=== PATIENT | male | born 1935 | race Caucasian/White ===

== ENCOUNTER 2022-03-07 15:18 | Emergency (ER) | payer MEDICARE, OTHER ==
[~2022-03-07] VITALS: Ht 172.7 cm; Wt 77.1 kg
--- NOTE | 2022-03-07 16:16 | NUR ---
DR SANDRINE CAMARILLO [phone]
--- NOTE | 2022-03-07 16:16 | NUR ---
DR BAHENA ON THE PHONE WITH DR CAMARILLO
--- NOTE | 2022-03-07 16:17 | NUR ---
X-RAY TECH AT THE BEDSIDE
[2022-03-07] MEDS ORDERED: VANCOMYCIN 1 GM in IV D5W 250 ML IV ONE (16:30)
--- NOTE | 2022-03-07 16:30 | NUR ---
IV LINE IS ESTABLISHED, BLOOD SPECIMEN COLLECTED AND SENT TO THE LAB.
--- NOTE | 2022-03-07 16:49 | NUR ---
COVID ANTIGEN SWAB IS DONE AND SENT TO THE LAB
[2022-03-07] MEDS ORDERED: GLIM4TAB37 PO (16:54)
[2022-03-07] MEDS ORDERED: PRAV40TA3 PO (16:54)
[2022-03-07] MEDS ORDERED: DOXA2TAB2 PO (16:54)
[2022-03-07] MEDS ORDERED: DULA1.5P SQ (16:54)
[2022-03-07] MEDS ORDERED: TAMS-12 PO (16:54)
[2022-03-07] MEDS ORDERED: APIX2.5T PO (16:54)
[2022-03-07 17:32] LABS: BASOPHILS % (AUTO) 0.3 % (0.0-2.0); HEMATOCRIT 37 % (39-51); HEMOGLOBIN 12.3 g/dL (13.5-17.5); LYMPHOCYTES # (AUTO) 1.5 K/uL (0.8-4.8); MEAN CORPUSCULAR HGB CONC 33 g/dl (31.0-36.0); MEAN CORPUSCULAR VOLUME 85 fL (80-96); MONOCYTES # (AUTO) 0.6 K/uL (0.1-1.30); MONOCYTES % (AUTO) 8.9 % (2.0-12.0); NEUTROPHILS # (AUTO) 4.6 K/uL (1.8-8.9); NEUTROPHILS % (AUTO) 67.8 % (43.0-81.0); PLATELET COUNT (AUTO) 147 K/uL (150-450); RED BLOOD CELL COUNT(AUTO) 4.42 MIL/uL (4.5-6.0); WHITE BLOOD COUNT (AUTO) 6.8 K/uL (4.3-11.0)
[2022-03-07 17:33] LABS: CALCIUM, SERUM 9.1 mg/dL (8.5-10.1); CREATININE 1.3 mg/dL (0.6-1.3); POTASSIUM 4.2 mmol/L (3.5-5.1)
[2022-03-07 17:34] LABS: C-REACTIVE PROTEIN 0.9 mg/dL (0.0-0.9)
--- NOTE | 2022-03-07 17:52 | NUR ---
ACCEPTED TO [facility], UNDER THE CARE OF DR. HANSEN. GOING TO ROOM 309, NUMBER TO GIVE REPORT. TRANSPORTATION [facility] TIER TIME AT 1930. PRIMARY RN AWARE.
--- NOTE | 2022-03-07 18:55 | NUR ---
REPORT GIVEN TO NURSE ESPINOSA FROM [facility]
--- NOTE | 2022-03-07 18:56 | NUR ---
REPORT GIVEN TO AMBULANCE STAFF
[2022-03-07 19:06] VITALS: BP 162/82
--- NOTE | 2022-03-07 19:08 | NUR ---
DR BAHENA MADE AWARE OF BP 162/82 AND HR 76 AND THE PATIENT IS GETTING TRANSFERED TO [facility]. NO NEW ORDERS PER ORDER.
== END 2022-03-07 19:15 | disposition short-term general hospital (02) ==
LOC: ER 15:18
DX: E11.621 Type 2 diabetes mellitus with foot ulcer (principal); L97.519 Non-pressure chronic ulcer of other part of right foot with unspecified severity; Z79.899 Other long term (current) drug therapy; Z79.84 Long term (current) use of oral hypoglycemic drugs; Z79.01 Long term (current) use of anticoagulants; I10 Essential (primary) hypertension; Z20.822 Contact with and (suspected) exposure to COVID-19
CPT/HCPCS: 36415; 73630; 80048; 85025; 85652; 86140; 87040 ×2; 87426; 96365; 99291; J3370; C9803; J7060

== ENCOUNTER 2022-05-25 14:02 | Outpatient (CLI) | payer MEDICARE, OTHER ==
[~2022-05-25 14:02] MED LIST: APIX2.5T PO; DOXA2TAB2 PO; DULA1.5P SQ; GLIM4TAB37 PO; PRAV40TA3 PO; TAMS-12 PO
== END 2022-05-25 23:59 | disposition home or self-care (01) ==
LOC: MRI 14:02
DX: S46.811A Strain of other muscles, fascia and tendons at shoulder and upper arm level, right arm, initial encounter (principal); M19.011 Primary osteoarthritis, right shoulder; M62.511 Muscle wasting and atrophy, not elsewhere classified, right shoulder; M75.81 Other shoulder lesions, right shoulder; M75.101 Unspecified rotator cuff tear or rupture of right shoulder, not specified as traumatic; M25.511 Pain in right shoulder; X58.XXXA Exposure to other specified factors, initial encounter; Y93.89 Activity, other specified; Y92.89 Other specified places as the place of occurrence of the external cause; Y99.8 Other external cause status
CPT/HCPCS: 73221-TC

== ENCOUNTER 2023-07-24 09:16 | Outpatient (CLI) | payer MEDICARE, OTHER ==
[2023-07-24] MEDS ORDERED: LIDOCAINE 2% JEL 5 ML TUBE ONE (09:27)
[2023-07-24] MEDS ORDERED: MUPIROCIN 2% CREAM 15 GM TUBE TP ONE (10:19)
[2023-07-24 11:20] LABS: ERYTHROCYTE SEDIMENTATION RATE 15 MM/HR (0-20)
[2023-07-24 11:28] LABS: BASOPHILS % (AUTO) 0.4 % (0.0-2.0); EOSINOPHILS # (AUTO) 0.1 K/uL (0.0-0.7); HEMATOCRIT 37 % (39-51); LYMPHOCYTES # (AUTO) 1.5 K/uL (0.8-4.8); LYMPHOCYTES % (AUTO) 23.2 % (20.0-44.0); MEAN CORPUSCULAR HEMOGLOBIN 28 PG (26.0-33.0); MEAN CORPUSCULAR HGB CONC 33 g/dl (31.0-36.0); MEAN CORPUSCULAR VOLUME 86 fL (80-96); MONOCYTES # (AUTO) 0.6 K/uL (0.1-1.30); MONOCYTES % (AUTO) 9.3 % (2.0-12.0); NEUTROPHILS # (AUTO) 4.2 K/uL (1.8-8.9); NEUTROPHILS % (AUTO) 66.1 % (43.0-81.0); PLATELET COUNT (AUTO) 199 K/uL (150-450); RED BLOOD CELL COUNT(AUTO) 4.24 MIL/uL (4.5-6.0); RED CELL DISTRIBUTION WIDTH 14.2 % (11.5-15.0); WHITE BLOOD COUNT (AUTO) 6.4 K/uL (4.3-11.0)
[2023-07-24 11:39] LABS: ALBUMIN 3.6 g/dL (3.4-5.0); CALCIUM, SERUM 9.3 mg/dL (8.5-10.1); CARBON DIOXIDE 23 mmol/L (21-32); CHLORIDE 103 mmol/L (98-107); CREATININE 1.4 mg/dL (0.6-1.3); GLUCOSE 194 mg/dL (74-106); POTASSIUM 4.5 mmol/L (3.5-5.1); SODIUM SERUM 136 mmol/L (136-145); UREA NITROGEN, BLOOD 34 mg/dL (7-18)
[2023-07-24 12:05] LABS: C-REACTIVE PROTEIN < 0.2 mg/dL (0.0-0.9); PREALBUMIN 21.4 MG/DL (18.0-35.7)
== END 2023-07-24 23:59 | disposition home or self-care (01) ==
LOC: WOU 09:16
PROVIDERS: ATTEND Podiatrist Foot & Ankle Surgery
DX: E11.621 Type 2 diabetes mellitus with foot ulcer (principal); L97.512 Non-pressure chronic ulcer of other part of right foot with fat layer exposed; M79.672 Pain in left foot; M79.671 Pain in right foot; L84 Corns and callosities; M20.42 Other hammer toe(s) (acquired), left foot; M20.41 Other hammer toe(s) (acquired), right foot; I10 Essential (primary) hypertension; Z79.84 Long term (current) use of oral hypoglycemic drugs; Z79.01 Long term (current) use of anticoagulants
CPT/HCPCS: 11042; 36415; 73630-TC; 80048-TC; 82040-TC; 84134-TC; 85025-TC; 85652-TC; 86140-TC

== ENCOUNTER 2023-07-31 09:56 | Inpatient (IN) | payer MEDICARE, OTHER ==
[~2023-07-31] VITALS: Ht 170.2 cm; Wt 70.3 kg
[2023-07-31] MEDS ORDERED: VANCOMYCIN HCL 1.25 GM in IV D5W 260 ML IV ONE (10:30)
[2023-07-31 10:45] LABS: BASOPHILS % (AUTO) 0.3 % (0.0-2.0); EOSINOPHILS # (AUTO) 0.1 K/uL (0.0-0.7); EOSINOPHILS % (AUTO) 1.4 % (0.0-6.0); HEMATOCRIT 36 % (39-51); HEMOGLOBIN 11.7 g/dL (13.5-17.5); LYMPHOCYTES # (AUTO) 1.3 K/uL (0.8-4.8); LYMPHOCYTES % (AUTO) 26.5 % (20.0-44.0); MEAN CORPUSCULAR HEMOGLOBIN 28 PG (26.0-33.0); MEAN CORPUSCULAR HGB CONC 33 g/dl (31.0-36.0); MEAN CORPUSCULAR VOLUME 85 fL (80-96); MONOCYTES # (AUTO) 0.5 K/uL (0.1-1.30); MONOCYTES % (AUTO) 10.1 % (2.0-12.0); NEUTROPHILS # (AUTO) 3.1 K/uL (1.8-8.9); NEUTROPHILS % (AUTO) 61.7 % (43.0-81.0); PLATELET COUNT (AUTO) 168 K/uL (150-450); RED BLOOD CELL COUNT(AUTO) 4.22 MIL/uL (4.5-6.0); RED CELL DISTRIBUTION WIDTH 14.2 % (11.5-15.0)
[2023-07-31] MEDS ORDERED: LINA145C PO (10:46)
[2023-07-31] MEDS ORDERED: OMEP40CA21 PO (10:46)
[2023-07-31] MEDS ORDERED: OLME20TA23 PO (10:46)
[2023-07-31] MEDS ORDERED: APIX5TAB PO (10:46)
[2023-07-31] MEDS ORDERED: CHOL200059 PO (10:46)
[2023-07-31] MEDS ORDERED: EMPA10TA PO (10:46)
[2023-07-31] MEDS ORDERED: CYAN500T64 PO (10:46)
[2023-07-31] MEDS ORDERED: DOCU250C14 PO (10:46)
[2023-07-31 10:49] LABS: CALCIUM, SERUM 8.9 mg/dL (8.5-10.1); CARBON DIOXIDE 29 mmol/L (21-32); CHLORIDE 103 mmol/L (98-107); CREATININE 1.5 mg/dL (0.6-1.3); GLUCOSE 190 mg/dL (74-106); POTASSIUM 4.6 mmol/L (3.5-5.1); SODIUM SERUM 137 mmol/L (136-145); UREA NITROGEN, BLOOD 30 mg/dL (7-18)
[2023-07-31 10:50] LABS: INR 1.08 (0.91-1.10); PARTIAL THROMBOPLASTIN TIME 33.3 SEC (24.3-34.3); PROTHROMBIN TIME 11.4 SECS (9.2-11.1)
[2023-07-31] MEDS ORDERED: DEXTROSE 50%-WATER 50 ML DISP.SYRIN IV PRN (11:00)
[2023-07-31] MEDS ORDERED: MORPHINE SULFATE INJ 2 MG/ML DISP.SYRIN IV PRN (11:00)
[2023-07-31] MEDS ORDERED: ONDANSETRON HCL/PF 4 MG/2 ML VIAL IVP PRN (11:00)
[2023-07-31] MEDS ORDERED: ACETAMINOPHEN 325 MG TABLET PO PRN (11:00)
[2023-07-31 12:00] VITALS: BP_SYST 121; BP_SYST 137; BP_DIAS 48; BP_DIAS 69; TEMP 97.7; TEMP 98; O2SAT 100; O2SAT 99
[2023-07-31 16:00] VITALS: BP 121/48; TEMP 97.7; O2SAT 100
[2023-07-31] MEDS: BLOOD SUGAR DIAGNOSTIC 1 EACH STRIP IN SCH ×2 (17:35→22:23)
[2023-07-31] MEDS: DOCUSATE SODIUM 250 MG CAPSULE PO SCH (17:38)
[2023-07-31] MEDS: CEFTRIAXONE 1 G in IV D5W 50 ML IV SCH (17:38)
[2023-07-31] MEDS: APIXABAN 2.5 MG TABLET PO SCH (17:39)
[2023-07-31] MEDS: INSULIN REGULAR, HUMAN 100 UNIT/ML 3 ML VIAL SQ PRN (17:40)
[2023-07-31 20:00] VITALS: BP 116/52; TEMP 98.8; O2SAT 100
[2023-08-01] VITALS: BP 114/56; TEMP 97.2; O2SAT 100
[2023-08-01 04:00] VITALS: BP 142/65; TEMP 98.1; O2SAT 100
[2023-08-01 06:50] LABS: BASOPHILS % (AUTO) 0.5 % (0.0-2.0); EOSINOPHILS # (AUTO) 0.1 K/uL (0.0-0.7); EOSINOPHILS % (AUTO) 1.6 % (0.0-6.0); HEMATOCRIT 39 % (39-51); HEMOGLOBIN 12.5 g/dL (13.5-17.5); LYMPHOCYTES # (AUTO) 1.4 K/uL (0.8-4.8); LYMPHOCYTES % (AUTO) 23.9 % (20.0-44.0); MEAN CORPUSCULAR HEMOGLOBIN 28 PG (26.0-33.0); MEAN CORPUSCULAR HGB CONC 32 g/dl (31.0-36.0); MEAN CORPUSCULAR VOLUME 86 fL (80-96); MONOCYTES # (AUTO) 0.6 K/uL (0.1-1.30); MONOCYTES % (AUTO) 9.9 % (2.0-12.0); NEUTROPHILS # (AUTO) 3.7 K/uL (1.8-8.9); NEUTROPHILS % (AUTO) 64.1 % (43.0-81.0); PLATELET COUNT (AUTO) 166 K/uL (150-450); RED BLOOD CELL COUNT(AUTO) 4.48 MIL/uL (4.5-6.0); RED CELL DISTRIBUTION WIDTH 13.9 % (11.5-15.0); WHITE BLOOD COUNT (AUTO) 5.8 K/uL (4.3-11.0)
[2023-08-01 07:07] LABS: CHOLESTEROL 163 mg/dL (<200); HDL CHOLESTEROL 53 mg/dL (40-60); LDL 91 mg/dL (0-99); TRIGLYCERIDES 146 mg/dL (30-150)
[2023-08-01 07:16] LABS: CALCIUM, SERUM 8.8 mg/dL (8.5-10.1); CARBON DIOXIDE 25 mmol/L (21-32); CHLORIDE 104 mmol/L (98-107); CREATININE 1.1 mg/dL (0.6-1.3); GLUCOSE 84 mg/dL (74-106); MAGNESIUM 2.4 mg/dL (1.8-2.4); PHOSPHORUS 3.4 mg/dL (2.5-4.9); POTASSIUM 4.2 mmol/L (3.5-5.1); SODIUM SERUM 138 mmol/L (136-145); UREA NITROGEN, BLOOD 28 mg/dL (7-18)
[2023-08-01] MEDS: BLOOD SUGAR DIAGNOSTIC 1 EACH STRIP IN SCH ×4 (07:46→22:06)
[2023-08-01] MEDS: INSULIN REGULAR, HUMAN 100 UNIT/ML 3 ML VIAL SQ PRN ×3 (07:47→22:08)
[2023-08-01 08:00] VITALS: BP 151/71; TEMP 98.3; O2SAT 100
[2023-08-01] MEDS: CHOLECALCIFEROL 1,000 UNIT TABLET (VIT D3) PO SCH (08:08)
[2023-08-01] MEDS: LOSARTAN POTASSIUM 50 MG TABLET PO SCH (08:09)
[2023-08-01] MEDS: APIXABAN 2.5 MG TABLET PO SCH ×2 (08:09→16:31)
[2023-08-01] MEDS: GLIMEPIRIDE 4 MG TABLET PO SCH (08:09)
[2023-08-01] MEDS: CYANOCOBALAMIN 500 MCG TABLET PO SCH (08:09)
[2023-08-01] MEDS: PANTOPRAZOLE 40 MG TABLET.DR PO SCH (08:10)
[2023-08-01] MEDS: ATORVASTATIN 10 MG TABLET PO SCH (08:10)
[2023-08-01] MEDS ORDERED: LIDOCAINE MPF 1%-EPI 1:200,000 30 ML VIAL IJ ONE (09:48)
[2023-08-01] MEDS ORDERED: BUPIVACAINE 0.5 % PF 150 MG/30 ML VIAL ONE ×3 (09:48→11:48)
[2023-08-01] MEDS ORDERED: LIDOCAINE 1% INJ 50 ML MDV IJ ONE ×2 (09:48→11:48)
[2023-08-01] MEDS: VANCOMYCIN 1.25 GM in IV D5W 250 ML IV SCH (11:00)
[2023-08-01] MEDS ORDERED: VANCOMYCIN 1 GM in IV D5W 250 ML IV SCH (11:00)
[2023-08-01 13:15] VITALS: BP 157/69; TEMP 98.3; O2SAT 100
[2023-08-01] MEDS ORDERED: ANESTHESIA TRAY IN PYXIS 1 EA TRAY MC ONE (15:17)
[2023-08-01 16:00] VITALS: BP 123/77; TEMP 98.5; O2SAT 100
[2023-08-01] MEDS: CEFTRIAXONE 1 G in IV D5W 50 ML IV SCH (16:29)
[2023-08-01] MEDS: DOCUSATE SODIUM 250 MG CAPSULE PO SCH (17:19)
[2023-08-01 20:00] VITALS: BP 106/73; TEMP 97.5; O2SAT 97
[2023-08-02] VITALS: BP 140/87; TEMP 97.7; O2SAT 98
[2023-08-02 04:00] VITALS: BP 100/65; TEMP 97.8; O2SAT 98
[2023-08-02 06:29] LABS: BASOPHILS % (AUTO) 0.5 % (0.0-2.0); EOSINOPHILS # (AUTO) 0.1 K/uL (0.0-0.7); EOSINOPHILS % (AUTO) 1.3 % (0.0-6.0); HEMATOCRIT 39 % (39-51); HEMOGLOBIN 12.6 g/dL (13.5-17.5); LYMPHOCYTES # (AUTO) 1.3 K/uL (0.8-4.8); LYMPHOCYTES % (AUTO) 23.9 % (20.0-44.0); MEAN CORPUSCULAR HEMOGLOBIN 28 PG (26.0-33.0); MEAN CORPUSCULAR HGB CONC 33 g/dl (31.0-36.0); MEAN CORPUSCULAR VOLUME 86 fL (80-96); MONOCYTES # (AUTO) 0.5 K/uL (0.1-1.30); MONOCYTES % (AUTO) 9.8 % (2.0-12.0); NEUTROPHILS # (AUTO) 3.6 K/uL (1.8-8.9); NEUTROPHILS % (AUTO) 64.5 % (43.0-81.0); PLATELET COUNT (AUTO) 177 K/uL (150-450); RED BLOOD CELL COUNT(AUTO) 4.49 MIL/uL (4.5-6.0); RED CELL DISTRIBUTION WIDTH 14.2 % (11.5-15.0); WHITE BLOOD COUNT (AUTO) 5.6 K/uL (4.3-11.0)
[2023-08-02 06:49] LABS: CALCIUM, SERUM 9.5 mg/dL (8.5-10.1); CREATININE 1.2 mg/dL (0.6-1.3); MAGNESIUM 2.5 mg/dL (1.8-2.4); PHOSPHORUS 3.7 mg/dL (2.5-4.9); POTASSIUM 4.2 mmol/L (3.5-5.1)
[2023-08-02 08:00] VITALS: BP 149/71; TEMP 98.9; O2SAT 100
[2023-08-02] MEDS: BLOOD SUGAR DIAGNOSTIC 1 EACH STRIP IN SCH ×4 (08:03→22:02)
[2023-08-02] MEDS: PANTOPRAZOLE 40 MG TABLET.DR PO SCH (08:04)
[2023-08-02] MEDS: ATORVASTATIN 10 MG TABLET PO SCH (08:24)
[2023-08-02] MEDS: CHOLECALCIFEROL 1,000 UNIT TABLET (VIT D3) PO SCH (08:24)
[2023-08-02] MEDS: CYANOCOBALAMIN 500 MCG TABLET PO SCH (08:24)
[2023-08-02] MEDS: GLIMEPIRIDE 4 MG TABLET PO SCH (08:24)
[2023-08-02] MEDS: LOSARTAN POTASSIUM 50 MG TABLET PO SCH (08:25)
[2023-08-02] MEDS: APIXABAN 2.5 MG TABLET PO SCH ×2 (08:53→17:20)
[2023-08-02] MEDS: VANCOMYCIN 1.25 GM in IV D5W 250 ML IV SCH (11:18)
[2023-08-02] MEDS: INSULIN REGULAR, HUMAN 100 UNIT/ML 3 ML VIAL SQ PRN ×2 (11:57→23:05)
[2023-08-02 12:00] VITALS: BP 130/59; TEMP 98.5; O2SAT 100
[2023-08-02 16:00] VITALS: BP 93/57; TEMP 98.7; O2SAT 99
[2023-08-02] MEDS: DOCUSATE SODIUM 250 MG CAPSULE PO SCH (17:19)
[2023-08-02] MEDS: CEFTRIAXONE 1 G in IV D5W 50 ML IV SCH (17:19)
[2023-08-02 20:00] VITALS: BP 117/71; TEMP 98.2; O2SAT 96
[2023-08-02] MEDS: TAMSULOSIN 0.4 MG CAP.SR.24H PO SCH (23:53)
[2023-08-03] VITALS: BP 123/83; TEMP 98; O2SAT 100
[2023-08-03 04:00] VITALS: BP 104/60; TEMP 97.9; O2SAT 98
[2023-08-03 06:17] LABS: CALCIUM, SERUM 8.7 mg/dL (8.5-10.1); CREATININE 1.3 mg/dL (0.6-1.3); POTASSIUM 4.2 mmol/L (3.5-5.1)
[2023-08-03] MEDS: PANTOPRAZOLE 40 MG TABLET.DR PO SCH (07:31)
[2023-08-03] MEDS: BLOOD SUGAR DIAGNOSTIC 1 EACH STRIP IN SCH ×4 (07:55→21:55)
[2023-08-03 08:00] VITALS: BP 115/78; TEMP 97.7; TEMP 97.9; O2SAT 97
[2023-08-03] MEDS: GLIMEPIRIDE 4 MG TABLET PO SCH (08:39)
[2023-08-03] MEDS: CHOLECALCIFEROL 1,000 UNIT TABLET (VIT D3) PO SCH (08:39)
[2023-08-03] MEDS: ATORVASTATIN 10 MG TABLET PO SCH (08:40)
[2023-08-03] MEDS: LOSARTAN POTASSIUM 50 MG TABLET PO SCH (08:40)
[2023-08-03] MEDS: CYANOCOBALAMIN 500 MCG TABLET PO SCH (08:40)
[2023-08-03] MEDS: APIXABAN 2.5 MG TABLET PO SCH ×2 (09:01→17:15)
[2023-08-03] MEDS: VANCOMYCIN 1.25 GM in IV D5W 250 ML IV SCH (11:23)
[2023-08-03] MEDS ORDERED: VANCOMYCIN 1.5 GM in IV D5W 500ml IV SCH (12:00)
[2023-08-03] MEDS: INSULIN REGULAR, HUMAN 100 UNIT/ML 3 ML VIAL SQ PRN ×3 (12:03→21:56)
[2023-08-03 12:09] VITALS: BP 106/61; TEMP 97.7; O2SAT 96
[2023-08-03 16:00] VITALS: BP 92/55; TEMP 97.5; O2SAT 96
[2023-08-03] MEDS: CEFTRIAXONE 1 G in IV D5W 50 ML IV SCH (16:12)
[2023-08-03] MEDS: DOCUSATE SODIUM 250 MG CAPSULE PO SCH (17:13)
[2023-08-03 20:00] VITALS: BP 117/74; TEMP 98.1; O2SAT 98
[2023-08-03] MEDS: TAMSULOSIN 0.4 MG CAP.SR.24H PO SCH (21:55)
[2023-08-03] MEDS: VANCOMYCIN HCL 0.75 GM in IV D5W 250 ML IV SCH (22:04)
[2023-08-04] VITALS: BP 122/58; TEMP 97.7; O2SAT 99
[2023-08-04 04:00] VITALS: BP 122/67; TEMP 97.5; O2SAT 97
[2023-08-04 06:37] LABS: CALCIUM, SERUM 8.9 mg/dL (8.5-10.1); CARBON DIOXIDE 29 mmol/L (21-32); CHLORIDE 102 mmol/L (98-107); CREATININE 1.4 mg/dL (0.6-1.3); GLUCOSE 89 mg/dL (74-106); SODIUM SERUM 137 mmol/L (136-145); UREA NITROGEN, BLOOD 34 mg/dL (7-18)
[2023-08-04 08:00] VITALS: BP 114/60; TEMP 97.3; O2SAT 97
[2023-08-04] MEDS: BLOOD SUGAR DIAGNOSTIC 1 EACH STRIP IN SCH ×4 (08:10→23:00)
[2023-08-04] MEDS: ATORVASTATIN 10 MG TABLET PO SCH (08:49)
[2023-08-04] MEDS: CHOLECALCIFEROL 1,000 UNIT TABLET (VIT D3) PO SCH (08:49)
[2023-08-04] MEDS: PANTOPRAZOLE 40 MG TABLET.DR PO SCH (08:49)
[2023-08-04] MEDS: CYANOCOBALAMIN 500 MCG TABLET PO SCH (08:49)
[2023-08-04] MEDS: GLIMEPIRIDE 4 MG TABLET PO SCH (08:49)
[2023-08-04] MEDS: LOSARTAN POTASSIUM 50 MG TABLET PO SCH (08:50)
[2023-08-04] MEDS: APIXABAN 2.5 MG TABLET PO SCH ×2 (09:13→16:46)
[2023-08-04] MEDS: VANCOMYCIN HCL 0.75 GM in IV D5W 250 ML IV SCH (10:51)
[2023-08-04] MEDS: INSULIN REGULAR, HUMAN 100 UNIT/ML 3 ML VIAL SQ PRN ×2 (11:29→23:11)
[2023-08-04 12:00] VITALS: BP 115/51; TEMP 97.5
[2023-08-04 16:00] VITALS: BP 101/55; TEMP 97.5
[2023-08-04] MEDS: CEFTRIAXONE 1 G in IV D5W 50 ML IV SCH (16:45)
[2023-08-04] MEDS: DOCUSATE SODIUM 250 MG CAPSULE PO SCH (17:37)
[2023-08-04 20:00] VITALS: BP 115/68; TEMP 97.6; O2SAT 98
[2023-08-04] MEDS: TAMSULOSIN 0.4 MG CAP.SR.24H PO SCH (22:59)
[2023-08-05] VITALS: BP 142/76; TEMP 98.3; O2SAT 96
[2023-08-05 04:00] VITALS: BP 128/75; TEMP 98.5; O2SAT 97
[2023-08-05] MEDS: BLOOD SUGAR DIAGNOSTIC 1 EACH STRIP IN SCH ×4 (06:03→21:47)
[2023-08-05] MEDS: INSULIN REGULAR, HUMAN 100 UNIT/ML 3 ML VIAL SQ PRN ×4 (06:03→21:48)
[2023-08-05 06:16] LABS: CALCIUM, SERUM 9.3 mg/dL (8.5-10.1); CARBON DIOXIDE 24 mmol/L (21-32); CHLORIDE 102 mmol/L (98-107); CREATININE 1.4 mg/dL (0.6-1.3); GLUCOSE 91 mg/dL (74-106); POTASSIUM 4.3 mmol/L (3.5-5.1); SODIUM SERUM 135 mmol/L (136-145); UREA NITROGEN, BLOOD 29 mg/dL (7-18)
[2023-08-05 08:00] VITALS: BP 114/60; TEMP 98.8; O2SAT 99
[2023-08-05] MEDS: CYANOCOBALAMIN 500 MCG TABLET PO SCH (08:16)
[2023-08-05] MEDS: ATORVASTATIN 10 MG TABLET PO SCH (08:16)
[2023-08-05] MEDS: CHOLECALCIFEROL 1,000 UNIT TABLET (VIT D3) PO SCH (08:16)
[2023-08-05] MEDS: GLIMEPIRIDE 4 MG TABLET PO SCH (08:16)
[2023-08-05] MEDS: LOSARTAN POTASSIUM 50 MG TABLET PO SCH (08:17)
[2023-08-05] MEDS: PANTOPRAZOLE 40 MG TABLET.DR PO SCH (08:17)
[2023-08-05] MEDS: APIXABAN 2.5 MG TABLET PO SCH ×2 (08:28→17:40)
[2023-08-05 12:00] VITALS: BP 119/59; TEMP 97.9; O2SAT 96
[2023-08-05 16:00] VITALS: BP 115/71; TEMP 97.5; O2SAT 96
[2023-08-05] MEDS: CEFTRIAXONE 1 G in IV D5W 50 ML IV SCH (17:39)
[2023-08-05] MEDS: DOCUSATE SODIUM 250 MG CAPSULE PO SCH (17:39)
[2023-08-05 20:52] VITALS: BP 120/79; TEMP 98.2; O2SAT 96
[2023-08-05] MEDS: TAMSULOSIN 0.4 MG CAP.SR.24H PO SCH (22:01)
[2023-08-06 00:19] VITALS: BP 99/62; TEMP 98; O2SAT 96
[2023-08-06 04:17] VITALS: BP 110/61; TEMP 98.2; O2SAT 96
[2023-08-06 07:06] LABS: BASOPHILS % (AUTO) 0.2 % (0.0-2.0); EOSINOPHILS # (AUTO) 0.1 K/uL (0.0-0.7); HEMATOCRIT 37 % (39-51); HEMOGLOBIN 12.3 g/dL (13.5-17.5); LYMPHOCYTES # (AUTO) 1.6 K/uL (0.8-4.8); MEAN CORPUSCULAR HEMOGLOBIN 28 PG (26.0-33.0); MEAN CORPUSCULAR HGB CONC 33 g/dl (31.0-36.0); MEAN CORPUSCULAR VOLUME 86 fL (80-96); MONOCYTES # (AUTO) 0.9 K/uL (0.1-1.30); NEUTROPHILS # (AUTO) 4.2 K/uL (1.8-8.9); NEUTROPHILS % (AUTO) 61.8 % (43.0-81.0); PLATELET COUNT (AUTO) 164 K/uL (150-450); RED BLOOD CELL COUNT(AUTO) 4.35 MIL/uL (4.5-6.0); WHITE BLOOD COUNT (AUTO) 6.8 K/uL (4.3-11.0)
[2023-08-06 07:29] LABS: ALANINE AMINOTRANSFERASE 22 U/L (12-78); ALKALINE PHOSPHATASE 75 U/L (46-116); ASPARTATE AMINOTRANSFERASE 14 U/L (15-37); BILIRUBIN,TOTAL 0.8 mg/dL (0.2-1.0); CALCIUM, SERUM 9.2 mg/dL (8.5-10.1); CARBON DIOXIDE 27 mmol/L (21-32); CHLORIDE 103 mmol/L (98-107); CREATININE 1.5 mg/dL (0.6-1.3); GLUCOSE 91 mg/dL (74-106); MAGNESIUM 2.4 mg/dL (1.8-2.4); PHOSPHORUS 3.5 mg/dL (2.5-4.9); POTASSIUM 4.4 mmol/L (3.5-5.1); SODIUM SERUM 136 mmol/L (136-145); UREA NITROGEN, BLOOD 33 mg/dL (7-18)
[2023-08-06] MEDS: BLOOD SUGAR DIAGNOSTIC 1 EACH STRIP IN SCH ×4 (07:41→21:52)
[2023-08-06 08:00] VITALS: BP 116/65; TEMP 97.8; O2SAT 99
[2023-08-06] MEDS: CHOLECALCIFEROL 1,000 UNIT TABLET (VIT D3) PO SCH (08:19)
[2023-08-06] MEDS: CYANOCOBALAMIN 500 MCG TABLET PO SCH (08:19)
[2023-08-06] MEDS: GLIMEPIRIDE 4 MG TABLET PO SCH (08:19)
[2023-08-06] MEDS: ATORVASTATIN 10 MG TABLET PO SCH (08:19)
[2023-08-06] MEDS: PANTOPRAZOLE 40 MG TABLET.DR PO SCH (08:19)
[2023-08-06] MEDS: APIXABAN 2.5 MG TABLET PO SCH ×2 (08:21→17:00)
[2023-08-06] MEDS: LOSARTAN POTASSIUM 50 MG TABLET PO SCH (08:22)
[2023-08-06 12:00] VITALS: BP 104/53; TEMP 98.2; O2SAT 99
[2023-08-06 16:00] VITALS: BP 138/59; TEMP 97.5; O2SAT 98
[2023-08-06] MEDS: DOCUSATE SODIUM 250 MG CAPSULE PO SCH (17:18)
[2023-08-06] MEDS: CEFTRIAXONE 1 G in IV D5W 50 ML IV SCH (17:18)
[2023-08-06 20:39] VITALS: BP 122/56; TEMP 98.2; O2SAT 98
[2023-08-06] MEDS: TAMSULOSIN 0.4 MG CAP.SR.24H PO SCH (21:46)
[2023-08-06] MEDS: INSULIN REGULAR, HUMAN 100 UNIT/ML 3 ML VIAL SQ PRN (21:54)
[2023-08-07 00:26] VITALS: BP 118/52; TEMP 98; O2SAT 98
[2023-08-07 04:00] VITALS: BP 120/60; TEMP 97.2; O2SAT 98
[2023-08-07 07:01] LABS: BASOPHILS % (AUTO) 0.5 % (0.0-2.0); EOSINOPHILS # (AUTO) 0.1 K/uL (0.0-0.7); EOSINOPHILS % (AUTO) 1.6 % (0.0-6.0); HEMATOCRIT 39 % (39-51); HEMOGLOBIN 12.8 g/dL (13.5-17.5); LYMPHOCYTES # (AUTO) 1.3 K/uL (0.8-4.8); LYMPHOCYTES % (AUTO) 20.9 % (20.0-44.0); MEAN CORPUSCULAR HEMOGLOBIN 28 PG (26.0-33.0); MEAN CORPUSCULAR HGB CONC 33 g/dl (31.0-36.0); MEAN CORPUSCULAR VOLUME 86 fL (80-96); MONOCYTES # (AUTO) 0.7 K/uL (0.1-1.30); MONOCYTES % (AUTO) 11.9 % (2.0-12.0); NEUTROPHILS % (AUTO) 65.1 % (43.0-81.0); PLATELET COUNT (AUTO) 182 K/uL (150-450); RED BLOOD CELL COUNT(AUTO) 4.59 MIL/uL (4.5-6.0); RED CELL DISTRIBUTION WIDTH 14.1 % (11.5-15.0); WHITE BLOOD COUNT (AUTO) 6.1 K/uL (4.3-11.0)
[2023-08-07 07:28] LABS: ALANINE AMINOTRANSFERASE 26 U/L (12-78); ALBUMIN 3.3 g/dL (3.4-5.0); ALKALINE PHOSPHATASE 80 U/L (46-116); ASPARTATE AMINOTRANSFERASE 21 U/L (15-37); BILIRUBIN,TOTAL 0.5 mg/dL (0.2-1.0); CALCIUM, SERUM 9.9 mg/dL (8.5-10.1); CARBON DIOXIDE 26 mmol/L (21-32); CHLORIDE 102 mmol/L (98-107); CREATININE 1.4 mg/dL (0.6-1.3); GLUCOSE 118 mg/dL (74-106); MAGNESIUM 2.5 mg/dL (1.8-2.4); PHOSPHORUS 3.6 mg/dL (2.5-4.9); POTASSIUM 4.5 mmol/L (3.5-5.1); SODIUM SERUM 137 mmol/L (136-145); TOTAL PROTEIN, SERUM 7.8 g/dL (6.4-8.2); UREA NITROGEN, BLOOD 34 mg/dL (7-18)
[2023-08-07] MEDS: BLOOD SUGAR DIAGNOSTIC 1 EACH STRIP IN SCH ×4 (07:50→22:21)
[2023-08-07 08:00] VITALS: BP 137/71; TEMP 97.7; O2SAT 96
[2023-08-07] MEDS: APIXABAN 2.5 MG TABLET PO SCH ×2 (09:00→17:34)
[2023-08-07] MEDS: GLIMEPIRIDE 4 MG TABLET PO SCH (09:00)
[2023-08-07] MEDS: ATORVASTATIN 10 MG TABLET PO SCH (09:26)
[2023-08-07] MEDS: CHOLECALCIFEROL 1,000 UNIT TABLET (VIT D3) PO SCH (09:26)
[2023-08-07] MEDS: LOSARTAN POTASSIUM 50 MG TABLET PO SCH (09:26)
[2023-08-07] MEDS: CYANOCOBALAMIN 500 MCG TABLET PO SCH (09:26)
[2023-08-07] MEDS: PANTOPRAZOLE 40 MG TABLET.DR PO SCH (09:26)
[2023-08-07] MEDS ORDERED: BUPIVACAINE 0.5 % PF 150 MG/30 ML VIAL ONE (09:56)
[2023-08-07] MEDS ORDERED: LIDOCAINE 1% INJ 50 ML MDV IJ ONE (09:56)
[2023-08-07] MEDS ORDERED: LIDOCAINE 1%-EPI 1:100,000 20 ML VIAL ONE (09:56)
[2023-08-07 12:00] VITALS: BP 111/71; TEMP 98.3; O2SAT 99
[2023-08-07] MEDS ORDERED: FENTANYL PF 100MCG/2ML AMPUL ONE (13:42)
[2023-08-07] MEDS ORDERED: ANESTHESIA TRAY IN PYXIS 1 EA TRAY MC ONE (14:00)
[2023-08-07 16:00] VITALS: BP 126/55; TEMP 98.5; O2SAT 99
[2023-08-07] MEDS: DOCUSATE SODIUM 250 MG CAPSULE PO SCH (17:34)
[2023-08-07] MEDS: CEFTRIAXONE 1 G in IV D5W 50 ML IV SCH (17:35)
[2023-08-07] MEDS: INSULIN REGULAR, HUMAN 100 UNIT/ML 3 ML VIAL SQ PRN ×2 (18:12→22:20)
[2023-08-07 20:00] VITALS: BP 133/66; TEMP 97.3; O2SAT 99
[2023-08-07] MEDS: TAMSULOSIN 0.4 MG CAP.SR.24H PO SCH (22:17)
[2023-08-08] VITALS: BP 133/66; TEMP 97.3; O2SAT 99
[2023-08-08 04:00] VITALS: BP 133/60; TEMP 97.7; O2SAT 99
[2023-08-08 07:44] LABS: BASOPHILS % (AUTO) 0.3 % (0.0-2.0); EOSINOPHILS # (AUTO) 0.1 K/uL (0.0-0.7); EOSINOPHILS % (AUTO) 1.5 % (0.0-6.0); HEMATOCRIT 38 % (39-51); HEMOGLOBIN 12.4 g/dL (13.5-17.5); LYMPHOCYTES # (AUTO) 1.2 K/uL (0.8-4.8); LYMPHOCYTES % (AUTO) 22.7 % (20.0-44.0); MEAN CORPUSCULAR HEMOGLOBIN 28 PG (26.0-33.0); MEAN CORPUSCULAR HGB CONC 33 g/dl (31.0-36.0); MEAN CORPUSCULAR VOLUME 85 fL (80-96); MONOCYTES # (AUTO) 0.6 K/uL (0.1-1.30); MONOCYTES % (AUTO) 10.2 % (2.0-12.0); NEUTROPHILS # (AUTO) 3.6 K/uL (1.8-8.9); NEUTROPHILS % (AUTO) 65.3 % (43.0-81.0); PLATELET COUNT (AUTO) 182 K/uL (150-450); RED BLOOD CELL COUNT(AUTO) 4.48 MIL/uL (4.5-6.0); RED CELL DISTRIBUTION WIDTH 13.8 % (11.5-15.0); WHITE BLOOD COUNT (AUTO) 5.5 K/uL (4.3-11.0)
[2023-08-08 07:49] LABS: CALCIUM, SERUM 8.8 mg/dL (8.5-10.1); CARBON DIOXIDE 24 mmol/L (21-32); CHLORIDE 102 mmol/L (98-107); CREATININE 1.1 mg/dL (0.6-1.3); GLUCOSE 86 mg/dL (74-106); POTASSIUM 4.1 mmol/L (3.5-5.1); SODIUM SERUM 137 mmol/L (136-145); UREA NITROGEN, BLOOD 27 mg/dL (7-18)
[2023-08-08] MEDS: BLOOD SUGAR DIAGNOSTIC 1 EACH STRIP IN SCH ×4 (07:58→22:20)
[2023-08-08] MEDS: INSULIN REGULAR, HUMAN 100 UNIT/ML 3 ML VIAL SQ PRN ×4 (07:58→22:22)
[2023-08-08 08:00] VITALS: BP 124/84; TEMP 97.7; O2SAT 99
[2023-08-08] MEDS: CHOLECALCIFEROL 1,000 UNIT TABLET (VIT D3) PO SCH (08:51)
[2023-08-08] MEDS: GLIMEPIRIDE 4 MG TABLET PO SCH (08:51)
[2023-08-08] MEDS: ATORVASTATIN 10 MG TABLET PO SCH (08:51)
[2023-08-08] MEDS: PANTOPRAZOLE 40 MG TABLET.DR PO SCH (08:51)
[2023-08-08] MEDS: CYANOCOBALAMIN 500 MCG TABLET PO SCH (08:51)
[2023-08-08] MEDS: APIXABAN 2.5 MG TABLET PO SCH ×2 (08:52→17:09)
[2023-08-08] MEDS: LOSARTAN POTASSIUM 50 MG TABLET PO SCH (08:57)
[2023-08-08 16:00] VITALS: BP 120/82; TEMP 98.2; O2SAT 96
[2023-08-08] MEDS: DOCUSATE SODIUM 250 MG CAPSULE PO SCH (17:08)
[2023-08-08] MEDS: CEFTRIAXONE 1 G in IV D5W 50 ML IV SCH (17:11)
[2023-08-08 20:00] VITALS: BP 101/64; TEMP 98.4; O2SAT 96
[2023-08-08] MEDS: TAMSULOSIN 0.4 MG CAP.SR.24H PO SCH (22:13)
[2023-08-09 04:00] VITALS: BP 118/68; TEMP 98; O2SAT 97
[2023-08-09 06:18] LABS: BASOPHILS % (AUTO) 0.3 % (0.0-2.0); EOSINOPHILS # (AUTO) 0.1 K/uL (0.0-0.7); EOSINOPHILS % (AUTO) 1.1 % (0.0-6.0); HEMATOCRIT 37 % (39-51); HEMOGLOBIN 12.2 g/dL (13.5-17.5); LYMPHOCYTES # (AUTO) 1.4 K/uL (0.8-4.8); LYMPHOCYTES % (AUTO) 24.2 % (20.0-44.0); MEAN CORPUSCULAR HEMOGLOBIN 28 PG (26.0-33.0); MEAN CORPUSCULAR HGB CONC 33 g/dl (31.0-36.0); MEAN CORPUSCULAR VOLUME 85 fL (80-96); MONOCYTES # (AUTO) 0.6 K/uL (0.1-1.30); MONOCYTES % (AUTO) 10.8 % (2.0-12.0); NEUTROPHILS # (AUTO) 3.6 K/uL (1.8-8.9); NEUTROPHILS % (AUTO) 63.6 % (43.0-81.0); PLATELET COUNT (AUTO) 189 K/uL (150-450); RED CELL DISTRIBUTION WIDTH 13.9 % (11.5-15.0); WHITE BLOOD COUNT (AUTO) 5.7 K/uL (4.3-11.0)
[2023-08-09 07:30] LABS: ALANINE AMINOTRANSFERASE 22 U/L (12-78); ALKALINE PHOSPHATASE 80 U/L (46-116); ASPARTATE AMINOTRANSFERASE 17 U/L (15-37); BILIRUBIN,TOTAL 0.5 mg/dL (0.2-1.0); CALCIUM, SERUM 9.4 mg/dL (8.5-10.1); CARBON DIOXIDE 24 mmol/L (21-32); CHLORIDE 103 mmol/L (98-107); CREATININE 1.4 mg/dL (0.6-1.3); GLUCOSE 144 mg/dL (74-106); MAGNESIUM 2.3 mg/dL (1.8-2.4); PHOSPHORUS 3.4 mg/dL (2.5-4.9); SODIUM SERUM 135 mmol/L (136-145); UREA NITROGEN, BLOOD 30 mg/dL (7-18)
[2023-08-09 08:00] VITALS: BP_SYST 115; BP_SYST 93; BP_DIAS 54; BP_DIAS 57; TEMP 97.5; TEMP 98.4; O2SAT 100; O2SAT 95
[2023-08-09] MEDS: INSULIN REGULAR, HUMAN 100 UNIT/ML 3 ML VIAL SQ PRN ×4 (09:01→21:52)
[2023-08-09] MEDS: BLOOD SUGAR DIAGNOSTIC 1 EACH STRIP IN SCH ×4 (09:01→21:45)
[2023-08-09] MEDS: APIXABAN 2.5 MG TABLET PO SCH ×2 (09:13→19:43)
[2023-08-09] MEDS: LOSARTAN POTASSIUM 50 MG TABLET PO SCH (09:13)
[2023-08-09] MEDS: CHOLECALCIFEROL 1,000 UNIT TABLET (VIT D3) PO SCH (09:14)
[2023-08-09] MEDS: ATORVASTATIN 10 MG TABLET PO SCH (09:14)
[2023-08-09] MEDS: CYANOCOBALAMIN 500 MCG TABLET PO SCH (09:14)
[2023-08-09] MEDS: GLIMEPIRIDE 4 MG TABLET PO SCH (11:08)
[2023-08-09] MEDS: PANTOPRAZOLE 40 MG TABLET.DR PO SCH (11:08)
[2023-08-09 12:00] VITALS: O2SAT 96
[2023-08-09 16:00] VITALS: BP 99/72; TEMP 97.9; O2SAT 97
[2023-08-09] MEDS: CEFTRIAXONE 1 G in IV D5W 50 ML IV SCH (19:42)
[2023-08-09] MEDS: DOCUSATE SODIUM 250 MG CAPSULE PO SCH (19:43)
[2023-08-09] MEDS: TAMSULOSIN 0.4 MG CAP.SR.24H PO SCH (21:00)
[2023-08-09 22:15] VITALS: BP 115/51; TEMP 98.1; O2SAT 94
[2023-08-10 04:38] VITALS: BP 122/70; TEMP 98.4; O2SAT 96
[2023-08-10 06:16] LABS: BASOPHILS % (AUTO) 0.5 % (0.0-2.0); EOSINOPHILS # (AUTO) 0.1 K/uL (0.0-0.7); HEMATOCRIT 38 % (39-51); HEMOGLOBIN 12.4 g/dL (13.5-17.5); LYMPHOCYTES # (AUTO) 1.6 K/uL (0.8-4.8); LYMPHOCYTES % (AUTO) 29.5 % (20.0-44.0); MEAN CORPUSCULAR HEMOGLOBIN 28 PG (26.0-33.0); MEAN CORPUSCULAR HGB CONC 32 g/dl (31.0-36.0); MEAN CORPUSCULAR VOLUME 86 fL (80-96); MONOCYTES # (AUTO) 0.6 K/uL (0.1-1.30); MONOCYTES % (AUTO) 11.5 % (2.0-12.0); NEUTROPHILS % (AUTO) 56.5 % (43.0-81.0); PLATELET COUNT (AUTO) 192 K/uL (150-450); RED BLOOD CELL COUNT(AUTO) 4.45 MIL/uL (4.5-6.0); RED CELL DISTRIBUTION WIDTH 13.7 % (11.5-15.0); WHITE BLOOD COUNT (AUTO) 5.4 K/uL (4.3-11.0)
[2023-08-10 06:39] LABS: ALANINE AMINOTRANSFERASE 19 U/L (12-78); ALKALINE PHOSPHATASE 82 U/L (46-116); ASPARTATE AMINOTRANSFERASE 17 U/L (15-37); BILIRUBIN,TOTAL 0.5 mg/dL (0.2-1.0); CALCIUM, SERUM 9.4 mg/dL (8.5-10.1); CARBON DIOXIDE 25 mmol/L (21-32); CHLORIDE 106 mmol/L (98-107); CREATININE 1.6 mg/dL (0.6-1.3); GLUCOSE 75 mg/dL (74-106); MAGNESIUM 2.4 mg/dL (1.8-2.4); PHOSPHORUS 3.6 mg/dL (2.5-4.9); POTASSIUM 4.2 mmol/L (3.5-5.1); SODIUM SERUM 138 mmol/L (136-145); UREA NITROGEN, BLOOD 33 mg/dL (7-18)
[2023-08-10] MEDS: INSULIN REGULAR, HUMAN 100 UNIT/ML 3 ML VIAL SQ PRN ×2 (07:54→12:15)
[2023-08-10] MEDS: BLOOD SUGAR DIAGNOSTIC 1 EACH STRIP IN SCH ×2 (07:54→12:14)
[2023-08-10] MEDS: CHOLECALCIFEROL 1,000 UNIT TABLET (VIT D3) PO SCH (09:05)
[2023-08-10] MEDS: GLIMEPIRIDE 4 MG TABLET PO SCH (09:05)
[2023-08-10] MEDS: CYANOCOBALAMIN 500 MCG TABLET PO SCH (09:05)
[2023-08-10] MEDS: PANTOPRAZOLE 40 MG TABLET.DR PO SCH (09:05)
[2023-08-10] MEDS: LOSARTAN POTASSIUM 50 MG TABLET PO SCH (09:06)
[2023-08-10] MEDS: ATORVASTATIN 10 MG TABLET PO SCH (09:06)
[2023-08-10] MEDS: APIXABAN 2.5 MG TABLET PO SCH ×2 (09:09→16:17)
[2023-08-10 12:00] VITALS: BP 143/71; TEMP 98.2; O2SAT 95
[2023-08-10] MEDS ORDERED: LEVO500T90 PO (12:52)
[2023-08-10] MEDS: CEFTRIAXONE 1 G in IV D5W 50 ML IV SCH (16:17)
== END 2023-08-10 17:30 | disposition home health service (06) | DRG 617 ==
LOC: ER 10:01 → TELE1 11:35 → MEDSG1 08-07 13:28
PROVIDERS: ADMIT Nurse Practitioner Acute Care; ATTEND Nurse Practitioner Acute Care
PROC: 0QBQ0ZX Excision of Right Toe Phalanx, Open Approach, Diagnostic (ICD-10-PCS; principal; 2023-08-01)
PROC: 0JBQ0ZZ Excision of Right Foot Subcutaneous Tissue and Fascia, Open Approach (ICD-10-PCS; 2023-08-01)
PROC: 0Y6P0Z3 Detachment at Right 1st Toe, Low, Open Approach (ICD-10-PCS; 2023-08-07)
PROC: 0QBQ0ZX Excision of Right Toe Phalanx, Open Approach, Diagnostic (ICD-10-PCS; 2023-08-07)
DX: E11.69 Type 2 diabetes mellitus with other specified complication (principal); E87.1 Hypo-osmolality and hyponatremia; M86.171 Other acute osteomyelitis, right ankle and foot; I48.92 Unspecified atrial flutter; N17.0 Acute kidney failure with tubular necrosis; E11.621 Type 2 diabetes mellitus with foot ulcer; E11.42 Type 2 diabetes mellitus with diabetic polyneuropathy; D64.9 Anemia, unspecified; E78.5 Hyperlipidemia, unspecified; Z79.84 Long term (current) use of oral hypoglycemic drugs; Z95.1 Presence of aortocoronary bypass graft; L84 Corns and callosities; N18.9 Chronic kidney disease, unspecified; L97.519 Non-pressure chronic ulcer of other part of right foot with unspecified severity; N40.0 Benign prostatic hyperplasia without lower urinary tract symptoms; I25.10 Atherosclerotic heart disease of native coronary artery without angina pectoris; Z79.01 Long term (current) use of anticoagulants; E11.65 Type 2 diabetes mellitus with hyperglycemia; I12.9 Hypertensive chronic kidney disease with stage 1 through stage 4 chronic kidney disease, or unspecified chronic kidney disease
CPT/HCPCS: 36415; 71045-TC; 73630-TC; 73718-TC; 76770-TC; 80048-TC; 80053-TC; 80061-TC; 80202-TC; 82962-TC; 83735-TC; 84100-TC; 85025-TC; 85730-TC; 87040-TC; 88305-TC; 88311-TC; 97112-TC; 97116-TC; 97530-TC; A4223; A6403; G0378; G0463; J0690; J0696; J1815; J2270; J2704; J3010; J3370; J3490; J7030; J7050; J7060